=== PATIENT | female | born 1945 | race Caucasian/White ===

== ENCOUNTER 2022-03-09 20:52 | Outpatient (REF) | payer MEDICARE, BC, SELFPAY | END 2022-03-09 20:53 | disposition home or self-care (01) | LOC: NCHCN 20:52 | PROVIDERS: PCP Nurse Practitioner Family; Visit Provider Family Medicine | DX: R39.89 Other symptoms and signs involving the genitourinary system (principal) | CPT/HCPCS: 87077; 87086; 87186 ==

== ENCOUNTER 2022-07-20 18:18 | Outpatient (REF) | payer MEDICARE, BC, SELFPAY ==
[2022-07-20 14:38] LABS: BUN 11 mg/dL (7-18); Calcium 8.9 mg/dL (8.5-10.1); Chloride 101 mmol/L (98-107); Estimated GFR 58.75 (mL/min/1.73m2); Glucose 141 mg/dL (74-106); Potassium 3.7 mmol/L (3.5-5.1); Sodium 138 mmol/L (136-145)
== END 2022-07-20 18:19 | disposition home or self-care (01) ==
LOC: NCHCN 18:18
PROVIDERS: PCP Nurse Practitioner Family; Visit Provider Family Medicine
DX: I10 Essential (primary) hypertension (principal)
CPT/HCPCS: 80048

== ENCOUNTER 2023-07-27 20:11 | Outpatient (REF) | payer MEDICARE, BC, SELFPAY | END 2023-07-27 20:12 | disposition home or self-care (01) | LOC: NCHCN 20:11 | PROVIDERS: PCP Nurse Practitioner Family; Visit Provider Family Medicine | DX: R30.0 Dysuria (principal); R82.79 Other abnormal findings on microbiological examination of urine | CPT/HCPCS: 87077; 87086; 87186 ==

== ENCOUNTER 2023-10-03 17:45 | Outpatient (REF) | payer MEDICARE, BC, SELFPAY | END 2023-10-03 17:46 | disposition home or self-care (01) | LOC: NCHCN 17:45 | PROVIDERS: PCP Nurse Practitioner Family; Visit Provider Registered Nurse | DX: N39.0 Urinary tract infection, site not specified (principal) | CPT/HCPCS: 87077; 87086; 87186 ==

== ENCOUNTER 2024-08-30 12:41 | Outpatient (REF) | payer MEDICARE, BC, SELFPAY ==
--- OUTSIDE RECORDS SUMMARY | 2024-08-30 12:48 | XMS_ITS | Encounter Summary ---
Author Organization [facility] Address [address] [place] [address] Care Team Providers Care Lending Activities Supervisor Name Role Phone Ubaldo Mora MD Primary Care Provider Unav ailable Reason for Visit * Reason Comments Cataract Complete exam Encounter Details Date Type Department Care Team (Late st Contact Info) Description 07/25/2018 12:30 EDT Office Visit [facility] [address] [place] [address] Sherman Savage MD [address] [place] [phone] Social History Tobacco Use Types Packs/Day Years Used Date Smoking Tobacco: Never Smokeless Tobacco: Never Alcohol Use Standard Drinks/Week Comments Not Asked 0 (1 standard drink = 0.6 oz pur e alcohol) Sex and Gender Information Value Date Recorded Sex Assigned at Not on file Gender Identity Not on file Sexual Orientation Not on file documented as of this encounter Functional Status Functional Status Response Date of Assess ment Because of a physical, menta l, or emotional condition, does this person have difficulty doing errands alone such as visiting a doctor's office or shopping? No 10/31/2015 Cognitive Status Response Date of Assessm ent Because of a physical, menta l, or emotional condition, does this person have serious difficulty concentrating, remembering, or making decisions? No 10/31/2015 documented as of this encounter Progress Notes * Sherman Savage MD - 07/25/2018 1230 EDT Chief Complaint Patient presents with ??? Cataract Complete exam HPI The patient is a 73 y.o. female here for follow up of cataract. She reports that the vision has been stable. She recently tripped and scratched her glasses and feels that they are impairing her vision. She has some glare, but it is not bothering all the time. she has no eye pain, double vision, or new flashes/floaters. Right Eye: Blurred Vision Left Eye: Blurred Vision Visual Aid: Glasses Current Rx Age > 2 years Location: Pain: 0 - No pain Quality: Severity: Duration: Timing: Lasts: Context: She is not having any pain in eyes. Distance vision seems a little worse for her. Sometimes her left eye feels dry. Modifying factors: Associated Signs & Symptoms: Attestation: ROS Constitutional: NL ENT/Mouth Cardiovascular: Respiratory: Gastrointestinal: Genitourinary: Musculoskeletal: Integumentary: Neurologic: Psychiatric: Endocrine: Hematologic: Immunologic: Pressure Vessel Inspector: Exposures: None Other: Attestation: Base Eye Exam Visual Acuity (Snellen - Linear) Right Left Dist cc 20/25 -2 20/25 +2 Dist ph cc NI Near cc J1+ J1+ Correction: Glasses Tonometry (Applanation, 13:00) Right Left Pressure 19 19 Pupils Pupils Dark APD Right PERRL 3 None Left PERRL 3 None Visual Ch (Counting fingers) Right Left Result Full Full Extraocular Movement Right Left Result Full Full Neuro/Psych Oriented x3: Yes Mood/Affect: Normal Dilation Both eyes: 1.0% Mydriacyl, 2.5% Phenylephrine @ 13:01 Slit Lamp and Fundus Exam Slit Lamp Exam Right Left Lids/Lashes Normal Normal Conjunctiva/Sclera White and quiet White and quiet Cornea Clear Clear Anterior Chamber Deep and quiet slightly shallow temporally Iris Large Peripheral iridectomy@10:30, Posterior synechiae from 11-3:00 Peripheral iridectomy@1:00 Lens 2+ Nuclear sclerosis 2+ Nuclear sclerosis, Trace Cortical cataract Fundus Exam Right Left Vitreous Normal Normal Disc Normal Normal C/D Ratio 0.35 0.25 Macula Normal Normal Vessels Normal Normal Periphery Normal Normal Refraction Wearing Rx Sphere Cylinder [place] Add Right +5.25 Sphere +2.50 Left +6.25 +0.25 170 +2.50 Age: 5yrs Type: PAL Manifest Refraction Sphere Cylinder [place] Dist Add Near Right +4.50 Sphere 20/20-2 +2.50 J1+ Left +6.50 +0.50 170 20/25+1 +2.50 J1+ Final Rx Sphere Cylinder [place] Add Right +4.50 Sphere +2.50 Left +6.50 +0.50 170 +2.50 Expiration Date: 07/25/2020 DIAGNOSTIC TESTS: IMPRESSION & PLAN: 1. Cataract, both eyes Not visually significant -Monitor periodically 2. Posterior synechiae, right eye From prior inflammation Drops of atropine 1% and 2.5% phenylephrine instilled today Monitor 3. Anatomical narrow angles, both eyes S/p peripheral iridotomy, both eyes 4. Disorder of refraction and accommodation -Give glasses Rx patient???s option to fill I have reviewed the patient's past medical, family, social and surgical history. I have also reviewed the patient's medications, allergies, and problem list. I performed my own HPI and have reviewed the tech's ROS as well. I completed this exam personally. Sherman Savage MD I am scribing for Sherman Savage MD, while he is personally performing the service. 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 Unspecified disorder of refraction and accommodation documented in this encounter Eye Exam Visual Acuity (Snellen - Linear) Right eye Left eye Dist cc 20/25 -2 20/25 +2 Dist ph cc NI Near cc J1+ J1+ Correction: Glasses Tonometry (Applanation, 13:00) Right eye Left eye Pressure 19 19 Pupils Pupils Dark APD Right eye PERRL 3 None Left eye PERRL 3 None Visual Ch (Counting fingers) Right eye Left eye Full Full Extraocular Movement Right eye Left eye Full Full Neuro/Psych Oriented x3: Yes Mood/Affect: Normal Dilation Both eyes: 1.0% Mydriacyl, 2 .5% Phenylephrine @ 13:01 Slit Lamp Exam Right eye Left eye Lids/Lashes Normal Normal Conjunctiva/Sclera White and quiet White and reynaldo et Cornea Clear Clear Anterior Chamber Deep and quiet slightly shallo w temporally Iris Large Peripheral iridectomy@10:30, Posterior synechiae from 11-3:00 Peripheral iridectomy@1:00 Lens 2+ Nuclear sclerosis 2+ Nuclear sclerosis, Trace Cortical cataract Vitreous Normal Normal Fundus Exam Right eye Left eye Disc Normal Normal C/D Ratio 0.35 0.25 Macula Normal Normal Vessels Normal Normal Periphery Normal Normal Wearing Rx Sphere Cylinder [place] Add Right eye +5.25 Sphere +2.50 Left eye +6.25 +0.25 170 +2.50 Age: 5yrs Type: PAL Manifest Refraction Sphere Cylinder [place] Dist VA Add Near VA Right eye +4.50 Sphere 20/20-2 +2.50 J1+ Left eye +6.50 +0.50 170 20/25+1 +2.50 J1+ Final Rx Sphere Cylinder [place] Add Right eye +4.50 Sphere +2.50 Left eye +6.50 +0.50 170 +2.50 Expiration Date: 07/25/2020 Care Teams Lending Activities Supervisor Relationship Specialty Start Date End Date Ubaldo Mora MD PCP - General 12/07/13 03/21/22 documented as of this encounter
--- OUTSIDE RECORDS SUMMARY | 2024-08-30 12:48 | XMS_ITS | Encounter Summary ---
Author Organization [facility] Address [facility] [place] [address] Care Team Providers Care Manager Critical Care Unit Name Role Phone Unavailable Primary Care Provider Unavailabl e Encounter Details Date Type Department Care Team (Late st Contact Info) Description 05/09/2019 External [place] [phone] Provider, Scanning Social History Tobacco Use Types Packs/Day Years Used Date Smoking Tobacco: Never Assessed Sex and Gender Information Value Date Recorded Sex Assigned at Not on file Gender Identity Not on file Sexual Orientation Not on file documented as of this encounter Plan of Treatment Not on file documented as of this encounter Procedures Procedure Name Priority Date/Time Associated Diagnosis Comments SURGICAL PATHOLOGY SCAN Routine 05/09/2019 documented in this encounter Results * Scan Doc: Surgical Pathology (05/09/2019) Historical Provider MD HALL MGR SCAN EX T ORDR/RSLT documented in this encounter Visit Diagnoses Not on filedocumented in this encounter
--- OUTSIDE RECORDS SUMMARY | 2024-08-30 12:48 | XMS_ITS | Clinical Summary ---
Author Organization [facility] [place] [place] [address] Care Team Providers Care Aquatic Life Laborer Name Role Phone Unavailable Primary Care Provider Unavailabl e Social History Tobacco Use Types Packs/Day Years Used Date Smoking Tobacco: Never Assessed Sex and Gender Information Value Date Recorded Sex Assigned at Not on file Gender Identity Not on file Sexual Orientation Not on file Plan of Treatment Health Maintenance Due Date Last Done Comments Hepatitis C Screening 1965 Tetanus/Diphtheria/Pertussis Vaccines (1 - Tdap) 03/06 Zoster vaccine (1 of 2) 1997 Advance Directive 2002 Bone Density Scan 2012 Pneumoccocal Vaccine: 65+ (1 of 1 - PCV) 2012 Covid-19 Vaccine (1 - season) 2024 Influenza (Flu) vaccine (1 o f 1 - Influenza standard series) 07/15/2024
--- OUTSIDE RECORDS SUMMARY | 2024-08-30 12:48 | XMS_ITS | Encounter Summary ---
Author Organization [facility] Address [facility] [place] [address] Care Team Providers Care Weigher And Mixer Name Role Phone Unavailable Primary Care Provider Unavailabl e Encounter Details Date Type Department Care Team (Latest Contact Info) Description 07/06/2021 9:37 PM EDT - 07/06/2021 11:59 PM EDT Hospital [place] [address] Discharge Disposition: Home Social History Tobacco Use Types Packs/Day Years Used Date Smoking Tobacco: Never Assessed Sex and Gender Information Value Date Recorded Sex Assigned at Not on file Gender Identity Not on file Sexual Orientation Not on file documented as of this encounter Plan of Treatment Not on file documented as of this encounter Procedures Procedure Name Priority Date/Time Associated Diagnosis Comments SURGICAL PATHOLOGY REPORT Routine 07/06/2021 12:30 PM EDT documented in this encounter Results * Surgical Pathology Report (07/06/2021 12:30 PM EDT) Final Diagnosis [id number] ? Location: [facility] The signing pathologist has (i) examined the relevant preparation(s) for the specimen(s) and (ii) rendered or confirmed the diagnosis(es). . 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, [place], [place] SPECIMEN(S) SUBMITTED A - L blanquita covington (_) Referring Identifier: ?(not provided) CLINICAL INFORMATION 1.9 cm keratotic nodule; SCC SPECIMEN PROCESSING A - Labeled/Fixativ e: Left [place], formalin. Quantity/Size: ??Single, 1.6 x 1.0 x 0.4 cm. Tissue Description: [place]-white crusted keratotic nodule. Sections/Proces sing: Inked, serially sectioned and entirely submitted in 3 cassettes as follows: ?A1: ??Tips ?A2-A3: ??Body ??MLL 07/09/2021 5:46 PM EDT [facility] SPECIMEN FROM SKIN / Unknown 07/06/2021 12:30 PM EDT 07/06/2021 12:30 PM EDT Reina Paniagua MD PATHOLOGY/CYTOLOGY O RDERABLES [facility] [place] [address] documented in this encounter Visit Diagnoses Not on filedocumented in this encounter
--- OUTSIDE RECORDS SUMMARY | 2024-08-30 12:48 | XMS_ITS | Encounter Summary ---
Author Organization [facility] Includes [facility] Address [facility] [place] [place] [address] Care Team Providers Care Brakeshoe Repairer Name Role Phone Unavailable Primary Care Provider Unavailabl e Encounter Details Date Type Department Care Team (Latest Contact Info) Description 06/30/2020 8:21 PM EDT - 06/30/2020 11:59 PM EDT Hospital Encounter Laboratory [facility] [place] [address] Discharge Disposition: Home Social History Tobacco Use [...] Associated Diagnosis Comments SURGICAL PATHOLOGY REPORT Routine 06/30/2020 11:50 AM EDT documented in this encounter Results * Surgical Pathology Report (06/30/2020 11:50 AM EDT) Final Diagnosis [id number] ? Location: [facility] The signing pathologist has (i) examined the relevant preparation(s) for the specimen(s) and (ii) rendered or confirmed the diagnosis(es). . 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 of Pathology, [place], [place] SPECIMEN(S) SUBMITTED A - R back, skin shave biopsy (1) Referring Identifier: ?(not provided) CLINICAL INFORMATION 9 mm keratotic nodule. SCC SPECIMEN PROCESSING A - Labeled/Fixativ e: Right back, formalin. Quantity/Size: ??Single, 1.3 x 1.2 cm. Tissue Description: Nonoriented, yellow white discoid skin shave of a 1.6 x 0.7 x 0.3 cm irregular, red-brown, crusted plaque like lesion. Sections/Proces sing: Inked, serially sectioned and entirely submitted in 2 cassettes as follows: ?A1: ??Tips ?A2: ??Body ??shb 07/04/2020 11:41 AM EDT [facility] SPECIMEN FROM SKIN / Unknown 06/30/2020 11:50 AM EDT 06/30/2020 11:50 AM EDT Reina Paniagua MD PATHOLOGY/CYTOLOGY O LEIDY [facility] [place] [address] documented in this encounter Visit Diagnoses Not on filedocumented in this encounter
--- OUTSIDE RECORDS SUMMARY | 2024-08-30 12:48 | XMS_ITS | Clinical Summary ---
Author Organization [facility] Address [address] [place] [address] Care Team Providers Care Supervisor Properties Name Role Phone Shameka Hall MD Primary Care Provide r Allergies Active Allergy Reactions Criticality Noted Date Comments Adhesive Tape-Silicones 03/22/2022 Propoxyphene 12/10/2013 Erythromycin 12/10/2013 Shellfish Containing Products 2013 Sulfa (Sulfonamide Antibiotics) 11/15 Medications No known medications Active Problems No known active problems Family History Medical History Relation Comments Cataract Neg Hx Diabetes Neg Hx Glaucoma Neg Hx Macular Degeneration Neg Hx Social History Tobacco Use Types Packs/Day Years Used Date Smoking Tobacco: Never Smokeless Tobacco: Never Alcohol Use Standard Drinks/Week Comments Yes 0 (1 standard drink = 0.6 oz pur e alcohol) occ Interpersonal Safety Answer Date Record ed Physically Hurt Never 06/15/2020 Verbally Threaten Not on file 06/15/2020 Sex and Gender Information Value Date Recorded Sex Assigned at Not on file Gender Identity Not on file Sexual Orientation Not on file Obstetrics History Plan of Treatment Health Maintenance Due Date Last Done Comments Hepatitis C Screen 1947 RSV Immunization ( o r 60+ Years) (1 - 1-dose 60+ series) 2007 Fall Risk Screening 03/22/2023 03/22/2022, 07/25/2018, 10/31/2015 COVID-19 Vaccine (2022-24 season) 2023 Care Teams Supervisor Properties Relationship Specialty Start Date End Date Shameka Hall MD [address] [facility] [address] [place] [address] PCP - General 03/22/22
--- OUTSIDE RECORDS SUMMARY | 2024-08-30 12:48 | XMS_ITS | Encounter Summary ---
Author Organization [facility] Address [address] [place] [address] Care Team Providers Care Case Coordinator Name Role Phone Ubaldo Mora MD Primary Care Provider Unav ailable Reason for Visit * Reason Comments Follow-up Has not noticed any changes with vision. Encounter Details Date Type Department Care Team (Late st Contact Info) Description 10/31/2015 13:[address] [facility] Ophthalmology [facility] [address] [place] [address] Sherman Savage MD [address] [place] [phone] Social History Tobacco Use Types Packs/Day Years Used Date Smoking Tobacco: Never Alcohol Use Standard Drinks/Week Comments [...] Progress Notes * Sherman Savage MD - 10/31/2015 1429 EST Chief Complaint Patient presents with ??? Follow-up Has not noticed any changes with vision. HPI The patient is a 70 y.o. female here for complete exam, she has no eye pain, double vision, or new flashes/floaters. Right Eye: NL Left Eye: NL Visual Aid: Glasses Current Rx Age Location: Pain: 0 - No pain Quality: Severity: Duration: Timing: Lasts: Context: Modifying factors: Associated Signs & Symptoms: Attestation: ROS Constitutional: NL ENT/Mouth Cardiovascular: Respiratory: Gastrointestinal: Genitourinary: Musculoskeletal: Integumentary: Neurologic: Psychiatric: Endocrine: Hematologic: Immunologic: Custom Car Builder: Exposures: None Other: Attestation: Base Eye Exam Visual Acuity (Snellen - Linear) Right Left Dist cc 20/25 20/25 Correction: Glasses Tonometry (Applanation, 13:48) Right Left Pressure 18 18 Pupils Pupils APD Right PERRL None Left PERRL None Visual Ch (Counting fingers) Right Left Result Full Full Extraocular Movement Right Left Result Full Full Neuro/Psych Oriented x3: Yes Mood/Affect: Normal Dilation Both eyes: 1.0% Mydriacyl, 2.5% Phenylephrine @ 13:49 Slit Lamp and Fundus Exam Slit Lamp Exam Right Left Lids/Lashes Normal Normal Conjunctiva/Sclera White and quiet White and quiet Cornea Clear Clear Anterior Chamber Deep and quiet slightly shallow temporally Iris Large Peripheral iridectomy@10:30, Posterior synechiae from 12-3:00 Peripheral iridectomy@1:00 Lens 2+ Nuclear sclerosis 2+ Nuclear sclerosis, Trace Cortical cataract Fundus Exam Right Left Vitreous Normal Normal Disc Normal Normal C/D Ratio 0.35 0.25 Macula Normal Normal Vessels Normal Normal Periphery Normal Normal Refraction Wearing Rx Sphere Cylinder [place] Add Right +5.50 +0.25 073 +2.75 Left +6.00 +0.25 142 +2.75 Type: PAL Manifest Refraction Sphere Cylinder [place] Dist Add Near Right +5.25 Sphere 20/20 +2.50 J1+ Left +6.25 +0.25 170 20/20 +2.50 J1+ Final Rx Sphere Cylinder [place] Add Right +5.25 Sphere +2.50 Left +6.25 +0.25 170 +2.50 DIAGNOSTIC TESTS: IMPRESSION & PLAN: 1. Cataract, both eyes -Not visually significant -Monitor periodically 2. Anatomical narrow angles, both eyes -PI's stable, both eyes 3.Disorder of refraction and accommodation -Give glasses Rx patient???s option to fill 4. Posterior synechiae, right eye Sign of past inflammation No current inflammation I have reviewed the patient's past medical, family, social and surgical history. I have also reviewed the patient's medications, allergies, and problem list. I performed my own HPI and have reviewed the tech's ROS as well. I completed this exam personally. Sherman Savage MD I am scribing for Sherman Savage MD, while he is personally performing the service. 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 Posterior synechiae of iris, right documented in this encounter Eye Exam Visual Acuity (Snellen - Linear) Right eye Left eye Dist cc 20/25 20/25 Correction: Glasses Tonometry (Applanation, 13:48) Right eye Left eye Pressure 18 18 Pupils Pupils APD Right eye PERRL None Left eye PERRL None Visual Ch (Counting fingers) Right eye Left eye Full Full Extraocular Movement Right eye Left eye Full Full Neuro/Psych Oriented x3: Yes Mood/Affect: Normal Dilation Both eyes: 1.0% Mydriacyl, 2 .5% Phenylephrine @ 13:49 Slit Lamp Exam Right eye Left eye Lids/Lashes Normal Normal Conjunctiva/Sclera White and quiet White and reynaldo et Cornea Clear Clear Anterior Chamber Deep and quiet slightly shallo w temporally Iris Large Peripheral iridectomy@10:30, Posterior synechiae from 12-3:00 Peripheral iridectomy@1:00 Lens 2+ Nuclear sclerosis 2+ Nuclear sclerosis, Trace Cortical cataract Vitreous Normal Normal Fundus Exam Right eye Left eye Disc Normal Normal C/D Ratio 0.35 0.25 Macula Normal Normal Vessels Normal Normal Periphery Normal Normal Wearing Rx Sphere Cylinder [place] Add Right eye +5.50 +0.25 073 +2.75 Left eye +6.00 +0.25 142 +2.75 Type: PAL Manifest Refraction Sphere Cylinder [place] Dist VA Add Near VA Right eye +5.25 Sphere 20/20 +2.50 J1+ Left eye +6.25 +0.25 170 20/20 +2.50 J1+ Final Rx Sphere Cylinder [place] Add Right eye +5.25 Sphere +2.50 Left eye +6.25 +0.25 170 +2.50 Care Teams Case Coordinator Relationship Specialty Start Date End Date Ubaldo Mora MD PCP - General 12/07/13 03/21/22 documented as of this encounter
--- OUTSIDE RECORDS SUMMARY | 2024-08-30 12:48 | XMS_ITS | Encounter Summary ---
Author Organization [facility] Address [facility] [place] [address] Care Team Providers Care Upper Cutter Machine Name Role Phone Unavailable Primary Care Provider Unavailabl e Encounter Details Date Type Department Care Team (Latest Contact Info) Description 11/22/2023 8:14 AM EST - 11/22/2023 11:59 PM EST Hospital [place] [address] Discharge Disposition: Home Social History Tobacco Use [...] Associated Diagnosis Comments SURGICAL PATHOLOGY REPORT Routine 11/22/2023 11:13 AM EST documented in this encounter Results * Surgical Pathology Report (11/22/2023 11:13 AM EST) Final Diagnosis [id number] ? Location: [facility] The signing pathologist has (i) examined the relevant preparation(s) for the specimen(s) and (ii) rendered or confirmed the diagnosis(es). . ?Surgical Pathology DIAGNOSIS Left posterior calf, skin shave biopsy: - Verrucous squamous lesion, irritated and inflamed, broadly transected (see discussion) Electronically signed by: ?Calin CONRAD, PhD, Horace Ariza Verified: ??12/01/2023 11:11 ??Dermatopathol ogist, Bone & Soft Tissue Pathologist Performed at: ??-[facility] [place] Dept. of Pathology, [place] [address] Drywall Sander: Rubén Lopez MD, AP, ??CLIA Certificate: [id number] DISCUSSION The lesion is broadly transected at the base, precluding a definitive diagnosis. Overall, the surface features are suggestive of an inflamed ? verrucous keratosis. Findings diagnostic of carcinoma are not seen in the examined sections. If there is clinical concern for a more significant deeper process not represented in this biopsy, additional sampling could be considered. SPECIMEN(S) SUBMITTED A - L Posterior Calf, Shave (1) Referring Identifier: ?(not provided) CLINICAL INFORMATION 6 mm keratotic nodule; inflamed benign keratosis, rule out SCC SPECIMEN PROCESSING A - Labeled/Fixativ e: Left posterior calf, formalin. Quantity/Size: ??Single, 0.8 x 0.7 x 0.2 cm. Tissue Description: Shave of a pink-white, scaly skin papule. Sections/Proces sing: Inked, trisected and entirely submitted in 1 cassette labeled A1. ??sns 12/01/2023 11:11 AM EST [facility] SPECIMEN FROM SKIN / Unknown 11/22/2023 11:13 AM EST 11/22/2023 11:13 AM EST Reina Paniagua MD PATHOLOGY/CYTOLOGY O RDERABLES [facility] [place] [id number] [facility] [place] [address] documented in this encounter Visit Diagnoses Not on filedocumented in this encounter
--- OUTSIDE RECORDS SUMMARY | 2024-08-30 12:48 | XMS_ITS | Encounter Summary ---
Author Organization [facility] Address [address] [place] [address] Care Team Providers Care Caustic Loader Name Role Phone Shameka Hall MD Primary Care Provide r Reason for Visit * Reason Comments Cataract Encounter Details Date Type Department Care Team (Late st Contact Info) Description 03/22/2022 10:45 EDT Office Visit [facility] [address] [place] [address] Judi Ross MD [address] [place] [phone] Social History Tobacco Use Types Packs/Day Years [...] as of this encounter Progress Notes * Judi Ross MD - 03/22/2022 4535 EDT Chief Complaint Patient presents with ??? Cataract HPI The patient is a 77 y.o. female with h/o cataracts, both eyes, for years. Has h/o anatomical narrowangle s/p LPI years ago with Dr. Hudson. Also has synechiae documented in her right eye, presumed to be due to old inflammation. No diagnosis of uveitis. She recalls having a bad conjunctivitis, thinks it was her left eye, when she was in college, used OTC jai. No h/o injury. Does not recall Dr. Hudson mentioning it. Noticing that mid distance is a little blurrier, reading signs is more difficult. Reading is ok. Wears specs full time babysitter Right Eye: Blurred Vision Left Eye: Dryness, Blurred Vision Visual Aid: Glasses Current Rx Age > 2 years Location: Both eyes Pain: 0 - No pain Quality: Blurry Severity: Mild Duration: Months Timing: Fluctuates Lasts: Months Context: radha seems about same over last 3 yrs except recently feels middle distance doesn't seemas sharp, denies any floaters or flashes, no pain, occ left eye will feel dry but does not use any ATs Modifying factors: Associated Signs & Symptoms: Attestation: ROS Constitutional: NL ENT/Mouth NL Cardiovascular: NL Respiratory: NL Gastrointestinal: NL Genitourinary: NL Musculoskeletal: NL Integumentary: NL Neurologic: NL Psychiatric: NL Endocrine: NL Hematologic: NL Immunologic: Drug Allergy Php Wordpress Developer: Exposures: None Other: Attestation: Base Eye Exam Visual Acuity (Snellen - Linear) Right Left Dist cc 20/30 -1 20/30 +2 Near cc J1+(-2) J1+ Tonometry (Applanation, 11:30) Right Left Pressure 21 20 Pupils Dark Shape React APD Right 3 Round Brisk None Left 3 Round Brisk None Visual Ch (Counting fingers) Right Left Full Full Extraocular Movement Right Left Full Full Neuro/Psych Oriented x3: Yes Mood/Affect: Normal Dilation Both eyes: Tropicamide 1%, Phenylephrine 2.5% @ 11:31 Slit Lamp and Fundus Exam External Exam Right Left External Normal Normal Slit Lamp Exam Right Left Lids/Lashes Normal Normal Conjunctiva/Sclera White and quiet White and quiet Cornea Clear Clear Anterior Chamber Deep and quiet Deep and quiet Iris PI patent at 10 o'clock, transillumination defects, anterior synechiae from 10 o'clock to 2:30PI patent at 1 o'clock Lens 1-2+ Nuclear sclerosis, cortical changes inferiorly 1-2+ Nuclear sclerosis, cortical changes inferonasally Fundus Exam Right Left Vitreous Normal Normal Disc Healthy Rim Healthy Rim C/D Ratio V0.7 x H0.3 0.2 Macula Normal Normal Vessels Normal Normal Periphery Normal Normal Refraction Wearing Rx Sphere Cylinder [place] Add Right +4.50 Sphere +2.50 Left +6.50 +0.50 164 +2.50 Age: 6yrs Type: PAL Manifest Refraction (Auto) Sphere Cylinder [place] Dist VA Right +3.25 +0.25 140 20/25- Left +6.25 +0.75 165 20/20 Manifest Refraction #2 Sphere Cylinder [place] Dist VA Right +3.00 Sphere 20/30+1 Left +6.00 +1.00 165 20/20 Cycloplegic Refraction Sphere Cylinder [place] Right +4.00 +0.50 140 Left +6.50 +0.50 180 Final Rx Sphere Cylinder [place] Add Right +4.00 +0.50 140 +2.50 Left +6.50 +0.50 180 +2.50 Expiration Date: 03/22/2024 DIAGNOSTIC TESTS: IMPRESSION & PLAN: ??? Combined forms of age-related cataract of both eyes - not visually significant - Observe ??? Anatomical narrow angle - s/p LPI both eyes, PIs patent, a/c deep both eyes. - observe ??? Anterior synechiae of iris, right eye - documented in Dr. Savage's note 2013. Presumed to be dueto prior inflammation, but no known history of uveitis. She recalls having a bad conjunctivitis, thinks it was her left eye?, when she was in college, used OTC jai. No h/o injury. - observe ??? Refractive error - rx dispensed I have reviewed the patient's past medical, family, social and surgical history. I have also reviewed the patient's medications, allergies, and problem list. I performed my own HPI and have reviewed the tech's ROS as well. I completed this exam personally. Judi Ross MD I am scribing for Judi Ross MD, while she is personally performing the service. 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 Anterior synechiae Refractive error Unspecified disorder of refraction and accommodation documented in this encounter Eye Exam Visual Acuity (Snellen - Linear) Right eye Left eye Dist cc 20/30 -1 20/30 +2 Near cc J1+(-2) J1+ Tonometry (Applanation, 11:30) Right eye Left eye Pressure 21 20 Pupils Dark Shape React APD Right eye 3 Round Brisk None Left eye 3 Round Brisk None Visual Ch (Counting fingers) Right eye Left eye Full Full Extraocular Movement Right eye Left eye Full Full Neuro/Psych Oriented x3: Yes Mood/Affect: Normal Dilation Both eyes: Tropicamide 1%, P henylephrine 2.5% @ 11:31 External Exam Right eye Left eye External Normal Normal Slit Lamp Exam Right eye Left eye Lids/Lashes Normal Normal Conjunctiva/Sclera White and quiet White and reynaldo et Cornea Clear Clear Anterior Chamber Deep and quiet Deep and quiet Iris PI patent at 10 o'cl ock, transillumination defects, anterior synechiae from 10 o'clock to 2:30 PI patent at 1 o'clock Lens 1-2+ Nuclear scleros is, cortical changes inferiorly 1-2+ Nuclear sclerosis, cortical changes inferonasally Vitreous Normal Normal Fundus Exam Right eye Left eye Disc Healthy Rim Healthy Rim C/D Ratio V0.7 x H0.3 0.2 Macula Normal Normal Vessels Normal Normal Periphery Normal Normal Wearing Rx Sphere Cylinder [place] Add Right eye +4.50 Sphere +2.50 Left eye +6.50 +0.50 164 +2.50 Age: 6yrs Type: PAL Manifest Refraction #1 (Auto) Sphere Cylinder [place] Dist VA Right eye +3.25 +0.25 140 20/25- Left eye +6.25 +0.75 165 20/20 Manifest Refraction #2 Sphere Cylinder [place] Dist VA Right eye +3.00 Sphere 20/30+1 Left eye +6.00 +1.00 165 20/20 Cycloplegic Refraction Sphere Cylinder [place] Right eye +4.00 +0.50 140 Left eye +6.50 +0.50 180 Final Rx Sphere Cylinder [place] Add Right eye +4.00 +0.50 140 +2.50 Left eye +6.50 +0.50 180 +2.50 Expiration Date: 03/22/2024 Care Teams Caustic Loader Relationship Specialty Start Date End Date Shameka Hall MD [address] [address] PCP - General 03/22/22 documented as of this encounter
--- OUTSIDE RECORDS SUMMARY | 2024-08-30 12:48 | XMS_ITS | Encounter Summary ---
Author Organization [facility] Address [facility] [place] [address] Care Team Providers Care Molecular Geneticist Name Role Phone Unavailable Primary Care Provider Unavailabl e Encounter Details Date Type Department Care Team (Latest Contact Info) Description 05/08/2019 7:24 PM EDT - 05/08/2019 11:59 PM EDT Hospital Encounter Laboratory [facility] [place] [phone] Discharge Disposition: Home Social History Tobacco Use [...] Associated Diagnosis Comments SURGICAL PATHOLOGY REPORT Routine 05/08/2019 2:00 PM EDT documented in this encounter Results * Surgical Pathology Report (05/08/2019 2:00 PM EDT) Final Diagnosis [id number] ? Location: [facility] The signing pathologist has (i) examined the relevant preparation(s) for the specimen(s) and (ii) rendered or confirmed the diagnosis(es). . ?Surgical Pathology DIAGNOSIS Skin, right upper forehead, shave biopsy: - Atypical squamous proliferation ?? excoriated, transected ??(see discussion) Electronically signed by: ??Álvaro Terry MD Verified: ??05/11/2019 ?Dermatopatholog ist Performed at: ??-[facility] Dept. of Pathology, [place], [place] DISCUSSION Overall, the lesion has some atypia. Not all of it can be definitively ascribed to reactive changes, and focal atypical mitotic activity is noted. The entirety of the lesion 's base is not available, so it cannot be assessed for atypia. The findings cause suspicion for the surface of ?squamous cell carcinoma arising in an exoriated seborrheic keratosis. ADDITIONAL STUDIES Interpretation of multiple step-leveled slide sections confirms the diagnosis above. CLINICAL INFORMATION Specimen Submitted: A - Skin, R upper forehead, Shave biopsy (1) Clinical History and Diagnosis: 1.1 cm pearly plaque with scab. BCC Referring Identifier: ?(not provided) SPECIMEN PROCESSING A - Labeled/Fixative: Right upper forehead, formalin. Quantity/Size: ??Single, 0.7 x 0.7 cm. Tissue Description: Quevedo-white skin shave with a 0.6 x 0.5 cm quevedo brown variegated lesion. Sections/Processi ng: Inked, bisected and entirely submitted in 1 cassette labeled A1. ??jmb 05/11/2019 9:52 AM EDT [facility] SPECIMEN FROM SKIN / Unknown 05/08/2019 2:00 PM EDT 05/08/2019 2:00 PM EDT Reina Paniagua MD PATHOLOGY/CYTOLOGY [facility] [place] [address] documented in this encounter Visit Diagnoses Not on filedocumented in this encounter
--- OUTSIDE RECORDS SUMMARY | 2024-08-30 12:48 | XMS_ITS | Referral Summary ---
Author Organization [facility] Address [address] [place] [address] Care Team Providers Care Physical Chemistry Professor Name Role Phone Shameka Hall MD Primary Care Provide r Allergies Active Allergy Reactions Criticality Noted Date Comments Adhesive Tape-Silicones 03/22/2022 Propoxyphene 12/10/2013 Erythromycin 12/10/2013 Shellfish Containing Products 2013 Sulfa (Sulfonamide Antibiotics) 11/15 Medications No known medications Active Problems No known active problems Social History Tobacco Use Types Packs/Day Years [...] on file Sexual Orientation Not on file Functional Status Functional Status Response Date of [...] concentrating, remembering, or making decisions? No 10/31/2015 Plan of Treatment Not on file Care Teams Physical Chemistry Professor Relationship Specialty Start Date End Date Shameka Hall MD [address] [place] [address] PCP - General 03/22/22
--- OUTSIDE RECORDS SUMMARY | 2024-08-30 12:49 | XMS_ITS | Encounter Summary ---
Author Organization [facility] Address [address] [place] [address] Care Team Providers Care Test Grader Name Role Phone Ubaldo Mora MD Primary Care Provider Unav ailable Reason for Visit * Reason Comments Annual Exam Last exam 3+ yrs ago . Encounter Details Date Type Department Care Team (Late st Contact Info) Description 12/10/2013 10:00 EST Office Visit [facility] Ophthalmology [facility] [address] [place] [address] Sherman Savage MD [address] [place] [phone] Social History Tobacco Use Types Packs/Day Years Used Date Smoking Tobacco: Never Alcohol Use Standard Drinks/Week Comments Not Asked 0 (1 standard drink = 0.6 oz pur e alcohol) Sex and Gender Information Value Date Recorded Sex Assigned at Not on file Gender Identity Not on file Sexual Orientation Not on file documented as of this encounter Progress Notes * Sherman Savage MD - 12/10/2013 1102 EST Chief Complaint Patient presents with ??? Annual Exam Last exam 3+ yrs ago. HPI The patient is a 68 y.o. female here for routine exam. She denies having eye pain, double vision, or blurred vision. She reports that her glasses are scratched and she is not seeing as well with them, but there has been no significant change in vision. Right Eye: NL Left Eye: NL Visual Aid: Glasses Current Rx Age Location: Pain: 0 - No pain Quality: Severity: Duration: Timing: Lasts: Context: Modifying factors: Associated Signs & Symptoms: Attestation: ROS Constitutional: NL ENT/Mouth Cardiovascular: Respiratory: Gastrointestinal: Genitourinary: Musculoskeletal: Integumentary: Neurologic: Psychiatric: Endocrine: Hematologic: Immunologic: Triage Technician: Exposures: None Other: Attestation: Base Eye Exam Visual Acuity Right Left Dist cc 20/20 20/25 Near cc J1+ J1+ Method: Snellen - Linear Correction: Glasses Tonometry Right Left Pressure 18 18 Method: Applanation Time: 10:26 Pupils Dark APD Right 3 None Left 3 None Visual Ch Right Left Result Full Full Method: Counting fingers Extraocular Movement Right Left Result Full Full Neuro/Psych Oriented x3: Yes Mood/Affect: Normal Dilation Both eyes: 1.0% Mydriacyl @ 10:26 Slit Lamp and Fundus Exam Slit Lamp Exam Right Left Lids/Lashes trace Meibomian gland dysfunction trace Meibomian gland dysfunction Conjunctiva/Sclera White and quiet White and quiet Cornea Clear Clear Anterior Chamber Deep and quiet slightly shallow temporally Iris Peripheral iridectomy@10:00, Posterior synechiae from 12-1:00 Peripheral iridectomy@1:00 Lens 1-2+ Nuclear sclerosis 1+ Nuclear sclerosis Vitreous Normal Normal Fundus Exam Right Left Disc Normal Normal C/D Ratio 0.4 0.3 Macula Normal Normal Vessels Normal Normal Periphery Normal Normal Refraction Wearing Rx Sphere Cylinder [place] Add Right +5.50 Sphere +2.75 Left +6.00 +0.25 153 +2.75 Age: 5yrs Type: PAL Manifest Refraction (Auto) Sphere Cylinder [place] Right Left +6.00 +0.25 125 Final Rx Sphere Cylinder [place] Add Right +5.50 Sphere +2.75 Left +6.00 +0.25 153 +2.75 DIAGNOSTIC TESTS: IMPRESSION & PLAN: 1. Cataract, both eyes Not visually significant -Monitor periodically 2. Anatomical narrow angles, both eyes -PI's stable, both eyes 3.Disorder of refraction and accommodation -Give glasses Rx patient???s option to fill I have reviewed the patient's past medical, family, social and surgical history. I have also reviewed the patient's medications, allergies, and problem list. I performed my own HPI and have reviewed the tech's ROS as well. I personally completed this exam myself. Sherman Savage MD I am scribing for Sherman Savage MD, while he is personally performing the service. Clau Rao Patient Education Topic: glasses, cataracts Method: Verbal Taught to: Patient Barriers: None Outcomes: independent Signature: Sherman Savage MD documented in this encounter Plan of Treatment Not on file documented as of this encounter Visit Diagnoses Diagnosis Nuclear sclerotic cataract of both eyes- Primary Senile nuclear sclerosis Anatomical narrow angle borderline glaucoma Unspecified disorder of refraction and accommodation documented in this encounter Eye Exam Visual Acuity (Snellen - Linear) Right eye Left eye Dist cc 20/20 20/25 Near cc J1+ J1+ Correction: Glasses Tonometry (Applanation, 10:26) Right eye Left eye Pressure 18 18 Pupils Dark APD Right eye 3 None Left eye 3 None Visual Ch (Counting fingers) Right eye Left eye Full Full Extraocular Movement Right eye Left eye Full Full Neuro/Psych Oriented x3: Yes Mood/Affect: Normal Dilation Both eyes: 1.0% Mydriacyl @ 10:26 Slit Lamp Exam Right eye Left eye Lids/Lashes trace Meibomian gland dysfunctio n trace Meibomian gland dysfunction Conjunctiva/Sclera White and quiet White and reynaldo et Cornea Clear Clear Anterior Chamber Deep and quiet slightly shallo w temporally Iris Peripheral iridectom y@10:00, Posterior synechiae from 12-1:00 Peripheral iridectomy@1:00 Lens 1-2+ Nuclear sclerosis 1+ Nuclea r sclerosis Vitreous Normal Normal Fundus Exam Right eye Left eye Disc Normal Normal C/D Ratio 0.4 0.3 Macula Normal Normal Vessels Normal Normal Periphery Normal Normal Wearing Rx Sphere Cylinder [place] Add Right eye +5.50 Sphere +2.75 Left eye +6.00 +0.25 153 +2.75 Age: 5yrs Type: PAL Manifest Refraction (Auto) Sphere Cylinder [place] Right eye Left eye +6.00 +0.25 125 Final Rx Sphere Cylinder [place] Add Right eye +5.50 Sphere +2.75 Left eye +6.00 +0.25 153 +2.75 Care Teams Test Grader Relationship Specialty Start Date End Date Ubaldo Mora MD PCP - General 12/07/13 03/21/22 documented as of this encounter
--- OUTSIDE RECORDS SUMMARY | 2024-08-30 12:49 | XMS_ITS | Encounter Summary ---
Author Organization [facility] Address [address] [place] [address] Care Team Providers Care Facilities Maintenance Supervisor Name Role Phone Unavailable Primary Care Provider Unavailabl e Encounter Details Date Type Department Care Team (Late st Contact Info) Description 08/07/2009 Orders Only [facility] Laboratory Services - [facility] ([facility] [address], [place] [id number] Gregory Goins FNP [address], [place] [id number] Social History Tobacco Use Types Packs/Day Years Used Date Smoking Tobacco: Never Assessed Sex and Gender Information Value Date Recorded Sex Assigned at Not on file Gender Identity Not on file Sexual Orientation Not on file documented as of this encounter Plan of Treatment Not on file documented as of this encounter Procedures Procedure Name Priority Date/Time Associated Diagnosis Comments CYTOPATHOLOGY Routine 08/07/2009 0:00 EDT documented in this encounter Results * CYTOPATHOLOGY (08/07/2009 0:00 EDT) Pathology Report: CYTOPATHOLOGY REPORT ? Reports generated via electronic interface contain original data; ? however they are lacking the format of the original report. ? Caution should be taken when reading/interpreti ng unformatted reports. ? Name: ? KEPPEL, CHRISTY ? Accession #: ? [id number] ? : ? 1945 (Age: 64) ??F ?Collect Date: ? 08/07/2009 ? Location: ? [facility] ? Receive Date: ? 08/08/2009 ? Provider: ?GREGORY GOINS EMBEDDED LINUX ENGINEER ? Copy to: ? Specimen/Source: ?Pap Test, Cervix, ThinPrep Imaging System with manual ?? evaluation ? Last Menstrual Period: ? Menstrual/Pregnanc y Status: ? Menopausal ? SPECIMEN ADEQUACY ? Satisfactory for Evaluation ? - transformation zone component present ? GENERAL CATEGORIZATION ? Negative for Intraepithelial Lesion or Malignancy ? Document reviewed and electronically signed by: ? Darrin Mcclelland, CT(ASCP) ? Report Date: ??08/14/2009 12:56 ? End of Report ? ANGE RAPP 08/07/2009 08/08/2009 Gregory Goins EMBEDDED LINUX ENGINEER PATHOLOGY ORDERAB LES ANGE RAPP [address] [place] [address] documented in this encounter Visit Diagnoses Not on filedocumented in this encounter
== END 2024-08-30 12:42 | disposition home or self-care (01) ==
LOC: NCHCN 12:41
PROVIDERS: PCP Nurse Practitioner Family; Visit Provider Family Medicine
DX: R39.9 Unspecified symptoms and signs involving the genitourinary system (principal)
CPT/HCPCS: 87086

== ENCOUNTER 2025-02-04 15:14 | Outpatient (REF) | payer MEDICARE, BC, SELFPAY | END 2025-02-04 15:15 | disposition home or self-care (01) | LOC: NCHCN 15:14 | PROVIDERS: PCP Nurse Practitioner Family; Visit Provider Internal Medicine | DX: R30.0 Dysuria (principal); R82.89 Other abnormal findings on cytological and histological examination of urine | CPT/HCPCS: 87077; 87086; 87186 ==